=== PATIENT | female | born 1980 | race Caucasian/White ===

== ENCOUNTER → 2016-09-30 | Outpatient (CLI) | payer OTHER ==
[~2016-09-30] MED LIST: AZIT250T PO; DOXY100C2 PO; IBUP-1451 PO; PHEN-905 PO; PRED50TA PO; VNTHFA/IN INH
--- NOTE | 2016-09-30 12:00 | DIAGNOSTIC IMAGING REPORT ---
CHEST 2 VIEWS ROUTINE CLINICAL HISTORY: Abnormal chest x-ray. Follow-up examination. COMPARISON STUDY: 09/14/2016 FINDINGS: The cardiac and mediastinal contours are normal. There is no evidence of focal pulmonary consolidation. There is no evidence of failure. No pleural effusions are visualized.[ The previously queried right upper lung zone nodule is no longer visualized. This likely represented a summation. IMPRESSION: No active disease in the chest. Electronically signed by: Cameron Arnett M.D. 09/30/2016 11:58 AM Dictated Date/Time: 09/30/2016 11:57 AM
== END | disposition home or self-care (01) ==
LOC: C.RAD 11:21
PROVIDERS: ATTEND Family Medicine
DX: R93.8 Abnormal findings on diagnostic imaging of other specified body structures (principal)

== ENCOUNTER → 2016-10-24 | Outpatient (CLI) | payer OTHER | END | disposition home or self-care (01) | LOC: C.LAB 15:37 | DX: Z32.00 Encounter for pregnancy test, result unknown (principal) ==

== ENCOUNTER → 2016-10-24 | Outpatient (CLI) | payer OTHER ==
[2016-10-25 10:03] LABS: ESTIMATED AVERAGE GLUCOSE 111 mg/dl; HA1C FLAG Normal (Normal)
== END | disposition home or self-care (01) ==
LOC: C.LAB 15:32
PROVIDERS: ATTEND Nurse Practitioner Adult Health
DX: L83 Acanthosis nigricans (principal); R73.01 Impaired fasting glucose

== ENCOUNTER → 2016-10-26 | Outpatient (CLI) | payer OTHER | END | disposition home or self-care (01) | LOC: C.LAB 16:21 | DX: Z32.00 Encounter for pregnancy test, result unknown (principal) ==

== ENCOUNTER 2016-11-07 22:51 | Emergency (ER) | payer OTHER ==
[~2016-11-07] VITALS: Ht 160 cm; Wt 93.6 kg
[~2016-11-07 22:51] MED LIST changes: -AZIT250T PO; -PRED50TA PO; -VNTHFA/IN INH
[2016-11-07 22:53] VITALS: TEMP 36.6; Ht 160 cm; Wt 93.6 kg
--- NOTE | 2016-11-07 23:24 | EMERGENCY ROOM VISIT NOTE ---
History Report prepared by Adri: Holli Pearson Under the Supervision of: Dr. Madeleine Leslie D.O. First contact with patient: 23:01 Chief Complaint: PELVIC PAIN Stated Complaint: EPTOPIC History of Present Illness The patient is a 36 year old female who presents to the Emergency Room with complaints of persistent left pelvic pain that began prior to arrival. She currently rates her discomfort as an 8/10 in severity. The patient states that she had a positive test. She states that last Monday she was at her meter tester's office and had an ultrasound that revealed an ectopic on her left side. Per records, the patient's Quantitative HCG on October 26 was 81. She notes that last week her Quantitative HCG was in the 700s. Per records, the patient's Quantitative HCG was in the 500s today at her meter tester's office. The patient states that she was told that at that time it was too small to rupture. The patient states that he has been twice before, noting a previous right sided ectopic and a miscarriage during her second . She notes calf cramping today. The patient denies any vaginal bleeding. She denies any health problems. She states that she is unsure what her blood type is, and does not believe that she has ever had RhoGAM in the past. Source of History: patient Onset: prior to arrival Position: other (left pelvic) Symptom Intensity: 8/10 Timing: other (persistent) Note: Associated Symptoms: calf cramping. Review of Systems See HPI for pertinent positives & negatives. A total of 10 systems reviewed and were otherwise negative. Past Medical & Surgical Medical Problems: (1) Acute bronchitis (2) Asthma (3) Diarrhea (4) Otitis media (5) Tonsillitis (6) Uterine Leiomyoma Nos Surgical Problems: (1) Ectopic (2) Hx of myomectomy Family History Cancer Diabetes mellitus Social History Smoking Status: Current Every Day Smoker Alcohol Use: occasionally Marital Status: in relationship Housing Status: lives with significant other Occupation Status: employed Current/Historical Medications No Active Prescriptions or Reported Meds Allergies Coded Allergies: BEE STING (Verified Allergy, Severe, SWELLING AND DIFFICULTY BREATHING, ) Codeine (Verified Allergy, Severe, SHORTNESS OF BREATH, 11/07/16) Hydrocodone (Verified Allergy, Severe, CAN'T BREATHE, THROAT SWELLS, ) Morphine (Verified Adverse Reaction, Mild, adverse,shaking, 11/07/16) Physical Exam Vital Signs Date Time Temp Pulse Resp B/P Pulse Ox O2 Delivery O2 Flow Rate FiO2 11/08/16 03:10 77 20 124/78 96 11/08/16 01:27 79 20 139/78 98 Room Air 11/07/16 22:53 36.6 97 18 147/80 97 Room Air Physical Exam HEENT: Head - normocephalic and atraumatic Pupils are equal, round, and reactive to light. Extraocular eye muscles are intact, and sclera are anicteric. Nose - moist nasal mucosa without discharge. Mouth - moist buccal mucosa. Oropharynx is nonerythematous and there is no tonsillar exudate or edema noted. Neck: Supple; no JVD, nuchal rigidity, cervical lymphadenopathy, or auscultated bruits. Heart: Regular rate and rhythm. There is a normal S1 and S2 with no murmurs, clicks, or gallops appreciated. Lungs: Clear to auscultation bilaterally with no wheezes, rales, or rhonchi. Abdomen: Bilateral lower quadrant abdominal pain that is worse in the left than right. Soft, nondistended, with good bowel sounds. There are no palpable pulsatile masses or hepatosplenomegaly. There is no guarding, rigidity, or rebound noted. Extremities: No evidence of cyanosis, clubbing, or edema. There are easily palpable peripheral pulses. Skin: warm and dry with good turgor and no rashes. Medical Decision & Procedures ER Provider Diagnostic Interpretation: US results as stated below per my review and radiologist interpretation: US OB 1st Trimester: No evidence of intrauterine gestation. Heterogeneous uterus, may be due to multiple fibroids versus adenomyosis. There are 2 hypoechoic lesions in the right adnexa which appear to be separate from the right ovary. One of the lesions inferior to the rigth ovary measures approximately 1.2 centimeters. The lesion superior to the right ovary measures approximately 1.6 centimeters. These are incompletely characterized but one of these may represent an ectopic preganncy. No free fluid. Radiologist: Cecille Pruitt MD Study ready at 0146 and initial results transmitted at 0227. Laboratory Results Test 11/07/16 23:30 Human Chorionic Gonadotropin, Quant 405 mIU/mL Laboratory results per my review. Medications Administered Medications (Trade) Dose Ordered Sig/Cody Route Start Time Stop Time Status Last Admin Dose Admin Ketorolac Tromethamine (Toradol Inj) 30 mg NOW STAT IV 11/08/16 01:29 11/08/16 01:30 DC 11/08/16 01:42 30 MG Procedure The patient was treated with 30 mg of Toradol Inj IV. ED Course 2306: Past medical records reviewed. The patient was evaluated in room A11B. A complete history and physical exam was performed. An IV lock was initiated and labs are drawn as above. 0129: Ordered Toradol Inj 30 mg IV. 0240: I reviewed the operative note from 10/18/2002 and the patient had an ectopic removed out of right fallopian tube, but tube was not removed. 0258: I discussed the patients ultrasound report with [facility] radiologist. She states that she could not visualize the left tube, only left ovary. The patient was unable to tolerate further endovaginal exam. 0301: I reevaluated the patient and she is resting comfortably. I discussed the exam findings with her and I discussed the treatment plan. She verbalized complete understanding and agreement. She is ready to go home. Medical Decision The patient is a 36 year old female who presents to the ED with left pelvic pain. Differential diagnosis includes ectopic , ruptured left fallopian tube, colitis. Labs: Quantitative HCG is 405, blood type AB+. The patient was diagnosed with a left-sided ectopic 3 days ago. The quantitative hCG continues to drop. There is no obvious free fluid on pelvic ultrasound. I have asked the patient to follow-up with the chair mechanic later today with regards to the ultrasound report. I tried to obtain ultrasound reports from the [employer] system for the office ultrasounds that were reported by the patient but no reports were found. Consults Time Called: 025 Consulting Physician: [facility] Radiologist Returned Call: [phone] I discussed the patients ultrasound report with [facility] radiologist. She states that she could not visualize the left tube, only left ovary. The patient was unable to tolerate further endovaginal exam. Impression Primary Impression: Ectopic Scribe Attestation The scribe's documentation has been prepared under my direction and personally reviewed by me in its entirety. I confirm that the note above accurately reflects all work, treatment, procedures, and medical decision making performed by me. Departure Information Dispostion Home / Self-Care Prescriptions No Active Prescriptions or Reported Meds Referrals Nely Gomez C.R.N.P. (PCP) Forms HOME CARE DOCUMENTATION FORM, IMPORTANT VISIT INFORMATION, WORK / SCHOOL INSTRUCTIONS Patient Instructions My [facility] Additional Instructions You must follow up with Dr. Fragoso this AM for a recheck. Return to the ER for worsening pain
[2016-11-08] MEDS ORDERED: KETOROLAC TROMETHAMINE 30 MG/ML VIAL IV STA (01:29)
[2016-11-08 03:10] VITALS: BP 124/78; PULSE 77; O2SAT 96
--- NOTE | 2016-11-08 07:16 | DIAGNOSTIC IMAGING REPORT ---
ECTOPIC ULTRASOUND CLINICAL HISTORY: Left-sided ectopic . Evaluate for free fluid or rupture. COMPARISON STUDY: 05/26/2010 FINDINGS: The patient was imaged in both a transabdominal and endovaginal fashion. No intrauterine gestational sac is visualized. The endometrial stripe measured 13 mm. The uterus was heterogeneous in appearance and there is distortion of the endometrium, possibly secondary to a submucosal fibroid. Additional fibroids are suspected including a 3.6 cm posterior fibroid. The right ovary, appears to contain 2 exophytic lesions measuring 12 mm and 16 mm respectively. These are nonspecific. The left ovary appears morphologically abnormal, and abuts a 19 mm lesion with peripheral vascularity. Unfortunately, the patient was not able to tolerate optimal endovaginal imaging. IMPRESSION: 1. Technically limited study. Both ovaries appear morphologically abnormal. Adjacent ectopic pregnancies cannot be excluded given the clinical history 2. No evidence of intrauterine gestational sac 3. Multiple uterine fibroids with deformity of the endometrial stripe 4. No evidence of free pelvic fluid. Electronically signed by: Cameron Arnett M.D. 11/08/2016 7:15 AM Dictated Date/Time: 11/08/2016 7:07 AM
== END 2016-11-08 03:11 | disposition home or self-care (01) ==
LOC: C.EDB 22:52 → C.EDA 11-08 03:11
DX: O00.90 Unspecified ectopic pregnancy without intrauterine pregnancy (principal); J45.909 Unspecified asthma, uncomplicated; F17.210 Nicotine dependence, cigarettes, uncomplicated

== ENCOUNTER 2017-03-01 00:19 | Emergency (ER) | payer OTHER ==
[~2017-03-01] VITALS: Ht 157.5 cm; Wt 93.8 kg
[2017-03-01 00:22] VITALS: TEMP 36.8; Ht 157.5 cm; Wt 93.8 kg
[2017-03-01] MEDS ORDERED: ALBUT/IPRATROP 3MG/0.5MG NEB 3 ML VIAL INH ONE (00:45)
[2017-03-01] MEDS ORDERED: VNTHFA/IN INH (01:43)
[2017-03-01] MEDS ORDERED: PRED50TA PO (02:26)
[2017-03-01] MEDS ORDERED: AZIT250T PO (02:26)
[2017-03-01] MEDS ORDERED: AZITHROMYCIN 250 MG TAB PO ONE (02:30)
[2017-03-01 02:39] VITALS: BP 126/76; PULSE 93; O2SAT 93
--- NOTE | 2017-03-01 04:40 | EMERGENCY ROOM VISIT NOTE ---
History First contact with patient: 00:28 Chief Complaint: RESPIRATORY PROBLEMS Stated Complaint: TROUBLE BREATHING Nursing Triage Summary: Seen in urgent care [facility] last monday, diagnosed with bronchitis - given tesslon pearls and prednisone. Having fevers and vomitting at that time. Started to feel better then worse again past couple days. having trouble taking deep breath, tight chest, and shortness of breath. History of Present Illness The patient is a 37 year old female who presents to the Emergency Room with complaints of persistent bronchitis symptoms for the past 7-10 days. The patient was initially seen at an urgent care clinic last week and started on prednisone. The patient states that she developed fever symptoms a few days later, that have been waxing and waning. The patient has been using albuterol inhaler with only brief relief of her symptoms. She does not have distinct chest pain, but does have some difficulty with shortness of breath. She feels this is identical to previous episodes of bronchitis and rates her discomfort a 5/10. Review of Systems More than 10 systems were reviewed and otherwise negative with the exception of history of present illness. Past Medical/Surgical History Medical Problems: (1) Acute bronchitis (2) Asthma (3) Diarrhea (4) Otitis media (5) Tonsillitis (6) Uterine Leiomyoma Nos Surgical Problems: (1) Ectopic (2) Hx of myomectomy Family History Cancer Diabetes mellitus Social History Smoking Status: Current Every Day Smoker Alcohol Use: occasionally Marital Status: in relationship Housing Status: lives with significant other Occupation Status: employed Current/Historical Medications Scheduled Azithromycin (Zithromax), 250 MG PO DAILY Prednisone (Prednisone), 50 MG PO DAILY Scheduled PRN Albuterol Hfa (Ventolin Hfa), 2 PUFFS INH Q6H PRN for SOB/Wheezing Allergies Coded Allergies: BEE STING (Verified Allergy, Severe, SWELLING AND DIFFICULTY BREATHING, ) Codeine (Verified Allergy, Severe, SHORTNESS OF BREATH, 03/01/17) Hydrocodone (Verified Allergy, Severe, CAN'T BREATHE, THROAT SWELLS, ) Morphine (Verified Adverse Reaction, Mild, adverse,shaking, 03/01/17) Physical Exam Vital Signs Date Time Temp Pulse Resp B/P (MAP) Pulse Ox O2 Delivery O2 Flow Rate FiO2 03/01/17 02:39 93 16 126/76 93 03/01/17 01:38 94 18 120/67 94 Room Air 03/01/17 00:47 94 Room Air 03/01/17 00:22 36.8 103 18 121/74 94 Room Air Pain Rating (0-10): 0 Physical Exam VITALS: Vitals are noted on the nurse's note and reviewed by myself. Vital signs stable. GENERAL: Well-developed, well-nourished, white female, who is in no acute distress and resting comfortably. Patient is cooperative with the examination. HEAD: Normocephalic atraumatic. HEART: Regular rate and rhythm without murmurs gallops or rubs. LUNGS: Diffuse wheezing and rhonchi throughout. No crackles or rales. MUSCULOSKELETAL: No muscle atrophy, erythema, or edema noted. Full range of motion without joint tenderness in all extremities. No lower extremity edema or posterior calf tenderness. Medical Decision & Procedures Medications Administered Medications (Trade) Dose Ordered Sig/Cody Route Start Time Stop Time Status Last Admin Dose Admin Prednisone (PredniSONE TAB) 60 mg NOW STAT PO 03/01/17 00:39 03/01/17 00:40 DC 03/01/17 00:54 60 MG Albuterol/ Ipratropium (Duoneb) 12 ml NOW ONCE INH 03/01/17 00:45 03/01/17 00:46 DC 03/01/17 00:53 12 ML Azithromycin (Zithromax Tab) 500 mg NOW ONCE PO 03/01/17 02:30 03/01/17 02:31 DC 03/01/17 02:31 500 MG ED Course Physical exam and history were performed. Nursing notes and EMR were reviewed. Patient appears to have bronchitis symptoms for the past 7-10 days. The patient does not appear toxic on examination. She was treated here in the department with a one-hour DuoNeb and oral prednisone. A chest x-ray was performed. Chest x-ray was reviewed by myself and my attending without acute process. On reevaluation the patient felt much better, and fellow for discharge home. Due to the length of her symptoms and we'll give her a course of Zithromax. She will also be treated with prednisone. The patient was pleased with this and invited back to the ER with any new, worsening, or concerning symptoms. The chart was completed utilizing [employer] Voice Recognition Software. Grammatical errors, random word insertions, pronoun errors, and incomplete sentences are an occasional consequence of this system due to software limitations, ambient noise, and hardware issues. Any formal questions or concerns about the content, text, or information contained within the body of this dictation should be directly addressed to the provider for clarification. Medical Decision Differential diagnosis: Etiologies such as infections, reactive airway disease, pneumonia, pneumothorax , COPD, CHF, cardiac ischemia, pulmonary embolism, musculoskeletal, gastrointestinal, as well as others were entertained. Impression Primary Impression: Acute bronchitis Departure Information Dispostion Home / Self-Care Condition GOOD Prescriptions Prednisone (Prednisone) 50 Mg Tab 50 MG PO DAILY for 4 Days, #4 TAB Prov: Ricardo Frank PA-C 03/01/17 Azithromycin (Zithromax) 250 Mg Tab 250 MG PO DAILY for 4 Days, #4 TAB Prov: Ricardo Frank PA-C 03/01/17 Forms HOME CARE DOCUMENTATION FORM, IMPORTANT VISIT INFORMATION Patient Instructions My [facility] Additional Instructions You were seen and evaluated today on an emergency basis only. This is not a substitute for, or an effort to provide, complete comprehensive medical care. It is not possible to recognize and treat all injuries or illnesses in a single emergency department visit. For this reason it is recommended that you followup with your primary care physician in the next 2-3 days for recheck. Take Zithromax 250 mg daily for the next 4 days. Take prednisone 50 mg daily for the next 4 days. You are welcome to return to the emergency department anytime with new, worsening, or concerning symptoms.
--- NOTE | 2017-03-01 07:25 | DIAGNOSTIC IMAGING REPORT ---
CHEST 2 VIEWS ROUTINE CLINICAL HISTORY: Cough/Wheezing COMPARISON STUDY: Chest radiograph September 30, 2016. FINDINGS: There is no pneumothorax or pleural effusion. There is no consolidation to suggest pneumonia. Cardiac size is normal. Mediastinal contours are normal. There is no evidence of pulmonary edema. IMPRESSION: No acute cardiopulmonary findings. Electronically signed by: Ambrose Hopson M.D. 03/01/2017 7:24 AM Dictated Date/Time: 03/01/2017 7:22 AM
== END 2017-03-01 02:40 | disposition home or self-care (01) ==
LOC: C.EDB 00:20
DX: J20.9 Acute bronchitis, unspecified (principal); J45.909 Unspecified asthma, uncomplicated; F17.200 Nicotine dependence, unspecified, uncomplicated; Z87.59 Personal history of other complications of pregnancy, childbirth and the puerperium; Z98.890 Other specified postprocedural states; Z83.3 Family history of diabetes mellitus

== ENCOUNTER → 2017-06-09 | Outpatient (CLI) | payer OTHER ==
[~2017-06-09] MED LIST changes: -DOXY100C2 PO; -IBUP-1451 PO; -PHEN-905 PO; +VNTHFA/IN INH
[2017-06-09 12:58] LABS: BASO % 0.9 %; BASO ABS # 0.08 K/uL (0-0.2); EOS % 1.9 %; HEMATOCRIT 39.6 % (37-47); IG% 0.2 %; LYMPH % 22.6 %; LYMPH ABS # 1.98 K/uL (1.2-3.4); MEAN CELL VOLUME 72.8 fL (80-100); MEAN CORPUSCULAR HEMOGLOBIN 22.4 pg (25-34); MEAN CORPUSCULAR HGB CONC 30.8 g/dl (32-36); MEAN PLATELET VOLUME 9.4 fL (7.4-10.4); MONO % 5.5 %; NEUT % 68.9 %; PLATELET COUNT 449 K/uL (130-400); RED BLOOD COUNT 5.44 M/uL (4.2-5.4); WHITE BLOOD COUNT 8.78 K/uL (4.8-10.8)
[2017-06-09 13:22] LABS: COMPLETE YES; ECHINOCYTES 1+; HYPERSEGMENTED POLYS 1+; HYPOCHROMIA PRESENT; OVALOCYTES 1+
[2017-06-09 13:33] LABS: ALT/SGPT 17 U/L (12-78); BLOOD UREA NITROGEN 10 mg/dl (7-18); BUN/CREATININE RATIO 13.9 (10-20); CALCIUM 8.6 mg/dl (8.5-10.1); CARBON DIOXIDE 23 mmol/L (21-32); CHLORIDE 109 mmol/L (98-107); CHOLESTEROL 214 mg/dl (0-200); CREATININE 0.74 mg/dl (0.60-1.20); GLUCOSE 93 mg/dl (70-99); POTASSIUM 3.9 mmol/L (3.5-5.1); SODIUM 140 mmol/L (136-145)
[2017-06-09 13:43] LABS: ALB/GLOB RATIO 0.8 (0.9-2); ALKALINE PHOSPHATASE 89 U/L (45-117); AST/SGOT 10 U/L (15-37); CHOLESTEROL/HDL RATIO 5.2; HDL CHOLESTEROL 41 mg/dl; LDL CHOLESTEROL CALCULATED 140 mg/dl; TRIGLYCERIDES 165 mg/dl (0-150); VERY LOW DENSITY LIPOPROT CALC 33 mg/dl
== END | disposition home or self-care (01) ==
LOC: C.LAB 11:18
PROVIDERS: ATTEND Nurse Practitioner Adult Health
DX: E78.5 Hyperlipidemia, unspecified (principal); F41.9 Anxiety disorder, unspecified

== ENCOUNTER → 2017-06-21 | Outpatient (CLI) | payer OTHER | LOC: C.PATHSPEC 16:50 | PROVIDERS: ATTEND Dermatology | DX: L91.8 Other hypertrophic disorders of the skin (principal) ==

== ENCOUNTER 2017-09-26 12:56 | Emergency (ER) | payer OTHER ==
[~2017-09-26] VITALS: Ht 160 cm; Wt 94.3 kg
[2017-09-26 13:13] VITALS: BP 124/71; PULSE 73; TEMP 37; O2SAT 97; Ht 160 cm; Wt 94.3 kg
--- NOTE | 2017-09-26 13:50 | DIAGNOSTIC IMAGING REPORT ---
CERVICAL SPINE 2 OR 3 VIEWS HISTORY: Pain. Neuropathy. RUE radiculopathy COMPARISON: None. FINDINGS: The cervical spine is visualized from C1 through the superior endplate of T1. There is no fracture. Reversal of the cervical curvature consistent with muscular spasm. Disc spaces are preserved. Prevertebral soft tissues and the atlantodens interval are intact. IMPRESSION: No fracture or subluxation within the cervical spine. Muscle spasm. The above report was generated using voice recognition software. It may contain grammatical, syntax or spelling errors. Electronically signed by: James Ramon M.D. 09/26/2017 1:48 PM Dictated Date/Time: 09/26/2017 1:47 PM
--- NOTE | 2017-09-26 14:01 | EMERGENCY ROOM VISIT NOTE ---
ED Visit Note First contact with patient: 13:16 CHIEF COMPLAINT: Right shoulder pain radiating down right arm HISTORY OF PRESENT ILLNESS: This 37 year old female patient presents to the emergency department, ambulatory complaining of pain in the neck on the right side, radiating into the shoulder and down the right arm. The patient rates the pain as tingly and 8/10 at its worst. The patietn states pain has been intermittent for several months, but recently worsening and for the past 2-3 days, has been more consistent. She describes the pain in her biceps as a "tearing sensation" and state she feels that the pain in her shoulder is a pressure. She states pain is worse with direct pressure of the elbow, which causes a tingling sensation down the right arm. The patient has taken 800mg ibuprofen at night for the pain without relief. 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 She does report talking with her PCP regarding the pain, but thought at that time it was related to her sleeping position. After changing positions at night, the symptoms have not improved. The patient denies numbness, but does report tingling. The patient denies chest pain or shortness of breath. There has been no injury. The patient denies headache, blurred vision, abdominal pain, nausea, or vomiting. The patient denies change in personality. REVIEW OF SYSTEMS: A 6 system review of systems was completed with positives and pertinent negatives listed in the HPI. ALLERGIES: Codeine, hydrocodone, morphine, fentanyl MEDICATIONS: None PMH: None SOCIAL HISTORY: The patient lives locally with family. She denies drug, alcohol , tobacco use. PHYSICAL EXAM: VITALS: Vitals are noted on the nurse's note and reviewed by myself. Vital signs stable. GENERAL: This is a 37 year old white female, in no acute distress , nondiaphoretic, well-developed well-nourished. SKIN: Capillary reflex less than 2 seconds. HEENT: Normocephalic. PERRLA. EOMI. Nares patent. Mucous membranes moist. Neck is supple without nuchal rigidity. Cervical spine is not tender to palpation. The patient does not have tenderness of the paraspinal muscles bilaterally. There is no lymphadenopathy. MUSCULOSKELETAL: The patient has full range of motion of the bilateral arms, however range of motion of the right shoulder is painful with abduction. The patient has increased discomfort with pain radiating down the arm with lateral bending and rotation in both directions of the neck. Strength 5/5 of the bilateral upper extremities. No weakness. NEURO: Patient was alert and oriented to person place and time. Normal sensation to light and sharp touch. No focal neurologic deficits. RADIOLOGY: CERVICAL SPINE 2 OR 3 VIEWS HISTORY: Pain. Neuropathy. RUE radiculopathy COMPARISON: None. FINDINGS: The cervical spine is visualized from C1 through the superior endplate of T1. There is no fracture. Reversal of the cervical curvature consistent with muscular spasm. Disc spaces are preserved. Prevertebral soft tissues and the atlantodens interval are intact. IMPRESSION: No fracture or subluxation within the cervical spine. Muscle spasm. The above report was generated using voice recognition software. It may contain grammatical, syntax or spelling errors. Electronically signed by: James Ramon M.D. 09/26/2017 1:48 PM Dictated Date/Time: 09/26/2017 1:47 PM EMERGENCY DEPARTMENT COURSE: I examined the patient. She presents today c/o chronic right shoulder/arm pain. She states symptoms seemed to have flared up and worsened spontaneously 2-3 days ago. The patient does have muscle spasms on examination, and movement at the neck worsens her symptoms. She has been taking 800mg ibuprofen QD for her symptoms without relief. I suspect a cervical radiculopathy vs. nerve impingement due to muscle spasms. The patient was agreeable to treatment with steroids and muscle relaxers with outpatient follow- up with her PCP. Discharge instructions were reviewed, prescriptions were sent, and the patient was discharged home in good condition. I attest that I have personally reviewed the patient's current medication list. Patient was found to have normal blood pressure on screening and does not require follow-up. DIFFERENTIAL DIAGNOSIS: Cervical radiculopathy, fracture, disc protrusion, disc herniation, nerve impingement, muscle spasms, sprain, strain, malignancy, and others DIAGNOSIS: Cervical radiculopathy, nerve impingement, muscle spasms Problem List Medical Problems: (1) Acute bronchitis Status: Resolved (2) Asthma Status: Chronic (3) Diarrhea Status: Resolved (4) Otitis media Status: Resolved (5) Tonsillitis Status: Resolved (6) Uterine Leiomyoma Nos Status: Chronic Surgical Problems: (1) Ectopic Status: Resolved (2) Hx of myomectomy Status: Resolved Current/Historical Medications Scheduled Cyclobenzaprine Hcl (Flexeril), 5-10 MG PO TID Methylprednisolone (Medrol Dosepak), 0 PO DAILY Allergies Coded Allergies: BEE STING (Verified Allergy, Severe, SWELLING AND DIFFICULTY BREATHING, ) Codeine (Verified Allergy, Severe, SHORTNESS OF BREATH, 03/01/17) Hydrocodone (Verified Allergy, Severe, CAN'T BREATHE, THROAT SWELLS, ) Morphine (Verified Adverse Reaction, Mild, adverse,shaking, 03/01/17) Vital Signs Date Time Temp Pulse Resp B/P (MAP) Pulse Ox O2 Delivery O2 Flow Rate FiO2 09/26/17 13:13 37.0 73 16 124/71 97 Room Air Departure Information Impression Primary Impression: Cervical radiculopathy Additional Impression: Muscle spasm of right shoulder Dispostion Home / Self-Care Condition GOOD Prescriptions Cyclobenzaprine Hcl (FLEXERIL) 5 Mg Tab 5-10 MG PO TID, #15 TAB PRN Prov: Kristal Clifford PA-C 09/26/17 Methylprednisolone (MEDROL DOSEPAK) 4 Mg Paul 0 PO DAILY, #1 PKT Prov: Kristal Clifford PA-C 09/26/17 Referrals Nely Gomez C.R.N.P. (PCP) Patient Instructions ED Cervical Radiculopathy, [facility] Additional Instructions You have been treated in the Emergency Department for right shoulder pain, cervical radiculopathy. You have been prescribed Flexeril (cyclobenzaprine) 1-2 tabs orally, three times per day. Do NOT exceed 30 mg (6 tabs) per day. Take your first dose at bedtime as it can make you drowsy. Always take all medications as prescribed. You have been prescribed a Medrol Dosepak. This is a steroid which will help decrease your inflammation, redness, and itch. Take the medicine as prescribed. Take the ENTIRE 6 day course of the steroids. Do not take any NSAIDs including ibuprofen, Motrin, Aleve, naproxen, Advil, Naprosyn while taking steroids. For pain control, you can use the following [id number] medicines (if >12 yo): Ibuprofen(Motrin, Advil) may be used for fever or pain. Use 600mg every six hours as needed. Take with food. Avoid using more than 2400mg in a 24 hour period. Do not use 2400mg per day for more than three consecutive days without physician direction. Prolonged inappropriate use can lead to stomach upset or ulcers. (AND/OR) Acetaminophen(Tylenol) may be used for fever or pain. Use 1000mg every six hours as needed. Avoid using more than 3000mg in a 24 hour period. If this is an acute injury, ice can be applied to the area of pain for the first 3 days to help decrease pain and inflammation. After the first 3 days, a heating pad can be used over the area for continued soothing relief. You should schedule a follow-up appointment in 2-3 days with your Primary Care Provider for further evaluation and treatment of your neck/shoulder pain. Return to the Emergency Department if your current symptoms worsen despite treatment course outlined above, or if you develop any of the following symptoms : intractable pain despite aforementioned treatment course, loss of control of your bowel or bladder, numbness or tingling in your groin, or development of a fever. Problem Qualifiers
[2017-09-26] MEDS ORDERED: METH4PAK PO (14:11)
[2017-09-26] MEDS ORDERED: CYCL5TAB PO (14:11)
== END 2017-09-26 14:25 | disposition home or self-care (01) ==
LOC: C.EDB 12:57 → C.EDD 14:25
DX: M54.12 Radiculopathy, cervical region (principal); M62.838 Other muscle spasm; G89.29 Other chronic pain; J45.909 Unspecified asthma, uncomplicated

== ENCOUNTER 2017-10-10 00:54 | Emergency (ER) | payer OTHER ==
[~2017-10-10] VITALS: Ht 160 cm; Wt 92.3 kg
[2017-10-10 01:02] VITALS: Ht 160 cm; Wt 92.3 kg
[2017-10-10] MEDS ORDERED: DIAZEPAM 5MG TAB PO STA (01:59)
[2017-10-10] MEDS ORDERED: PRED20TA PO (02:01)
[2017-10-10] MEDS ORDERED: DIAZ-165 PO (02:01)
--- NOTE | 2017-10-10 02:02 | EMERGENCY ROOM VISIT NOTE ---
History Report prepared by Adri: Nik Urrtuia Under the Supervision of: Dr. Jonah Mcfarlane M.D. First contact with patient: 01:16 Chief Complaint: NEURO SYMPTOMS Stated Complaint: RIGHT ARM NUMBNESS,GOING INTO NECK AND HEAD History of Present Illness The patient is a 37 year old female who presents to the Emergency Room with complaints of constant right arm numbness and weakness beginning today. Her numbness begins in the center of her upper right arm, and radiates down to her hand as well as up towards her neck. The patient has been told that she has muscle knots in her right shoulder. She was seen in the ED two weeks ago for similar symptoms, but states that her current symptoms are worse. She was treated with muscle relaxers at this time and discharged on steroids. The patient notes that she has been losing weight recently, but not intentionally. She notes that she has been very thirsty lately. She states that she has been urinating frequently as well, but states that this is normal for her. The patient denies bowel or bladder incontinence, or leg numbness or weakness. Source of History: patient Onset: Today Position: arm (right) Quality: numbness, other (weakness) Timing: constant Associated Symptoms: No weakness (leg), No numbness (leg) Note: The patient denies loss of bowel or bladder continence. Review of Systems See HPI for pertinent positives & negatives. A total of 10 systems reviewed and were otherwise negative. Past Medical & Surgical Medical Problems: (1) Acute bronchitis (2) Asthma (3) Diarrhea (4) Otitis media (5) Tonsillitis (6) Uterine Leiomyoma Nos Surgical Problems: (1) Ectopic (2) Hx of myomectomy Family History Cancer Diabetes mellitus Social History Smoking Status: Current Every Day Smoker Alcohol Use: occasionally Marital Status: in relationship Housing Status: lives with significant other Occupation Status: employed Current/Historical Medications Scheduled Prednisone (Prednisone), 0 PO DAILY Scheduled PRN Diazepam (Valium), 5 MG PO Q6H PRN for Pain Allergies Coded Allergies: BEE STING (Verified Allergy, Severe, SWELLING AND DIFFICULTY BREATHING, ) Codeine (Verified Allergy, Severe, SHORTNESS OF BREATH, 10/10/17) Hydrocodone (Verified Allergy, Severe, CAN'T BREATHE, THROAT SWELLS, ) Morphine (Verified Adverse Reaction, Mild, adverse,shaking, 10/10/17) Physical Exam Vital Signs Date Time Temp Pulse Resp B/P (MAP) Pulse Ox O2 Delivery O2 Flow Rate FiO2 10/10/17 02:12 36.9 89 18 115/82 98 10/10/17 01:02 36.9 96 18 125/79 97 Room Air Physical Exam GENERAL: Patient is well appearing and in mild distress. HEENT: No acute trauma, normocephalic atraumatic, mucous membranes moist, no nasal congestion, no scleral icterus. NECK: No stridor, no adenopathy, no meningismus, trachea is midline. LUNGS: No dyspnea. Clear to auscultation and equal bilaterally. No wheeze, no rhonchi. HEART: Regular rate and rhythm. No murmurs, rubs, gallops appreciated. EXTREMITIES: Normal motion all extremities, no cyanosis, no edema. NEUROLOGIC: Alert and oriented, no acute motor or sensory deficits, no focal weakness, cranial nerves grossly intact. SKIN: No rash, no jaundice, no diaphoresis. Medical Decision & Procedures Laboratory Results Test 10/10/17 01:45 Bedside Glucose 102 mg/dl (70-90) Medications Administered Medications (Trade) Dose Ordered Sig/Cody Route Start Time Stop Time Status Last Admin Dose Admin Prednisone (PredniSONE TAB) 60 mg NOW STAT PO 10/10/17 01:59 10/10/17 02:00 DC 10/10/17 02:05 60 MG Diazepam (Valium Tab) 5 mg NOW STAT PO 10/10/17 01:59 10/10/17 02:00 DC 10/10/17 02:05 5 MG ED Course 0118: The patient was evaluated in room B6. A complete history and physical exam was performed. 0159: Ordered Valium Tab 5 mg PO, Prednisone Tab 60 mg PO. 0200: Reevaluated the patient. Discussed results and discharge instructions: she verbalized understanding and agreement. The patient is ready for discharge. Medical Decision Differential: Cervical radiculopathy, spinal stenosis, dissection, and muscle spasm. 37 yr old female with right arm symptoms consistent with radiculopathy without weakness and with posterior head pain I suspect muscle spasm/occipital nerve irritation. No neuro deficits. Previously responded to medrol thus will increase prednisone taper and add on Valium for further muscle relaxation. Stressed PCP follow up to discuss MRI vs PT and possible spine surgeon eval. Reviewed symptoms requiring RTED. No evidence vascular issue/dissection. [place] Drug Monitoring [place] Search Results: patient reviewed within database, no issues identified, see additional documentation Drug Monitoring Findings: Previous prescriptions for benzodiazepines several months ago. None recent. Medication Reconcilliation Current Medication List: was personally reviewed by me Blood Pressure Screening Patient's blood pressure: Normal blood pressure Blood pressure disposition: Did not require urgent referral Impression Primary Impression: Right cervical radiculopathy Scribe Attestation The scribe's documentation has been prepared under my direction and personally reviewed by me in its entirety. I confirm that the note above accurately reflects all work, treatment, procedures, and medical decision making performed by me. Departure Information Dispostion Home / Self-Care Prescriptions Diazepam (Valium) 5 Mg Tab 5 MG PO Q6H Y for Pain, #10 TAB Prov: Jonah Mcfarlane M.D. 10/10/17 Prednisone (Prednisone) 20 Mg Tab 0 PO DAILY, #14 TAB 3 TABS DAILY FOR 2 DAYS, THEN 2 TABS DAILY FOR 2 DAYS, THEN 1 TAB DAILY FOR 2 DAYS, THEN 1/2 TAB DAILY FOR 2 DAYS. Prov: Jonah Mcfarlane M.D. 10/10/17 Referrals Nely Gomez C.R.NEmre (PCP) Patient Instructions ED Cervical Radiculopathy, [facility] Additional Instructions It is very important you follow up with your primary care provider for further evaluation and possible MRI imaging.
[2017-10-10 02:12] VITALS: BP 115/82; PULSE 89; TEMP 36.9; O2SAT 98
== END 2017-10-10 02:13 | disposition home or self-care (01) ==
LOC: C.EDB 00:55
DX: M54.12 Radiculopathy, cervical region (principal); F17.200 Nicotine dependence, unspecified, uncomplicated; Z80.9 Family history of malignant neoplasm, unspecified; Z83.3 Family history of diabetes mellitus

== ENCOUNTER 2018-01-27 16:18 | Emergency (ER) | payer OTHER ==
[~2018-01-27] VITALS: Ht 160 cm; Wt 88.2 kg
[~2018-01-27 16:18] MED LIST changes: +DIAZ-165 PO; +PRED20TA PO; -VNTHFA/IN INH
[2018-01-27 16:21] VITALS: TEMP 36.5; Ht 160 cm; Wt 88.2 kg
[2018-01-27] MEDS ORDERED: SODIUM CHLORIDE 0.9% 500ML 500 ML IV STA (16:31)
[2018-01-27] MEDS ORDERED: KETOROLAC TROMETHAMINE 30 MG/ML VIAL IV STA (16:31)
[2018-01-27] MEDS ORDERED: ONDANSETRON INJ 2 MG/ML 2 ML VIAL IV STA (16:31)
--- NOTE | 2018-01-27 16:48 | EMERGENCY ROOM VISIT NOTE ---
History Report prepared by Adri: Harpal Rankin Under the Supervision of: Dr. Reymundo Saucedo M.D. First contact with patient: 16:24 Chief Complaint: VAGINAL BLEEDING Stated Complaint: HEAVY PERIOD,LG CLOTS,DIZZY History of Present Illness The patient is a 38 year old female who presents to the Emergency Room with complaints of constant vaginal bleeding beginning two days ago. The patient states that her period was four days late, which she notes is very unusual for her. She reports that she started spotting two days ago. She reports that she had some light bleeding and discharge yesterday. The patient states that she passed a clot this morning that looked like scabs. She also complains of nausea , dizziness, constipation, abdominal cramps, back pain, and chills. She notes that her last bowel movement was this morning, but reports that it was difficult. She rates her abdominal cramping as a 7/10. She denies any vomiting, fever, cough, urinary symptoms, and congestion. The patient states that she has been three times in the past. She notes that one resulted in a miscarriage and that the other two were ectopic. She reports that there is a chance that she might be . The patient states that during her last , she was very dizzy but was not as nauseous as she is today. She notes that she took 800mg ibuprofen with no relief of her symptoms. She reports that she has a history of a myomectomy. Source of History: patient Onset: two days ago Position: other (vagina) Quality: other (bleeding) Timing: constant Associated Symptoms: + chills, + nausea, + back pain, No fevers, No cough, No vomiting, No urinary symptoms Note: The patient also complains of dizziness, constipation, and abdominal cramps. She denies any congestion. Review of Systems See HPI for pertinent positives & negatives. A total of 10 systems reviewed and were otherwise negative. Past Medical & Surgical Medical Problems: (1) Acute bronchitis (2) Asthma (3) Diarrhea (4) Ectopic (5) Miscarriage (6) Otitis media (7) (8) Tonsillitis (9) Uterine Leiomyoma Nos Surgical Problems: (1) Ectopic (2) Hx of myomectomy Family History Cancer Diabetes mellitus Hypertension Social History Smoking Status: Current Every Day Smoker Alcohol Use: occasionally Marital Status: in relationship Housing Status: lives with significant other Occupation Status: unemployed Current/Historical Medications No Active Prescriptions or Reported Meds Allergies Coded Allergies: BEE STING (Verified Allergy, Severe, SWELLING AND DIFFICULTY BREATHING, ) Codeine (Verified Allergy, Severe, SHORTNESS OF BREATH, 10/10/17) Hydrocodone (Verified Allergy, Severe, CAN'T BREATHE, THROAT SWELLS, ) Fentanyl (Unverified Adverse Reaction, Severe, stopped breathing, 01/27/18) Morphine (Verified Adverse Reaction, Mild, adverse,shaking, 10/10/17) Physical Exam Vital Signs Date Time Temp Pulse Resp B/P (MAP) Pulse Ox O2 Delivery O2 Flow Rate FiO2 01/27/18 16:21 36.5 81 18 147/85 98 Room Air Physical Exam GENERAL: Patient is in no acute distress. HEENT: No acute trauma, normocephalic atraumatic, mucous membranes moist, no nasal congestion, no scleral icterus. NECK: No stridor, no adenopathy, no meningismus, trachea is midline. LUNGS: Clear to auscultation bilaterally, no wheeze, no rhonchi, breath sounds equal. HEART: Without murmurs gallops or rubs, regular rate and rhythm. ABDOMEN: Soft, bowel sounds positive, no hernias, no peritonitis, mildly tender in the mid low pelvis. EXTREMITIES: No cyanosis or edema, full range of motion of all the joints without pain or difficulty, no signs for acute trauma. NEUROLOGIC: Oriented x 3, no acute motor or sensory deficits, no focal weakness. SKIN: No rash, no jaundice, no diaphoresis. Medical Decision & Procedures ER Provider Diagnostic Interpretation: Pelvic ultrasound: IMPRESSION: 1. Intramural and pedunculated subserosal uterine leiomyomas as above. 2. No endometrial thickening. 3. 1.6 cm hypoechoic structure adjacent to the right ovary suggests exophytic follicle or para ovarian cyst. 4. No evidence of ovarian torsion. 5. Trace free pelvic fluid, likely physiologic. The above report was generated using voice recognition software. It may contain grammatical, syntax or spelling errors. Electronically signed by: Chaka Giron M.D. 01/27/2018 6:14 PM Laboratory Results 01/27/18 17:00 Red Blood Count 5.13, Mean Corpuscular Volume 72.9, Mean Corpuscular Hemoglobin 22.8, Mean Corpuscular Hemoglobin Concent 31.3, Mean Platelet Volume 8.9, Neutrophils (%) (Auto) 66.2, Lymphocytes (%) (Auto) 27.4, Monocytes (%) (Auto) 4.8, Eosinophils (%) (Auto) 1.1, Basophils (%) (Auto) 0.3, Neutrophils # (Auto) 6.13, Lymphocytes # (Auto) 2.53, Monocytes # (Auto) 0.44, Eosinophils # (Auto) 0.10, Basophils # (Auto) 0.03 01/27/18 17:00 Test 01/27/18 16:50 01/27/18 17:00 Urine Color YELLOW Urine Appearance CLEAR (CLEAR) Urine pH 5.0 (4.5-7.5) Urine Specific [place] 1.014 (1.000-1.030) Urine Protein NEG (NEG) Urine Glucose (UA) NEG (NEG) Urine Ketones NEG (NEG) Urine Occult Blood NEG (NEG) Urine Nitrite NEG (NEG) Urine Bilirubin NEG (NEG) Urine Urobilinogen NEG (NEG) Urine Leukocyte Esterase NEG (NEG) White Blood Count 9.25 K/uL (4.8-10.8) Red Blood Count 5.13 M/uL (4.2-5.4) Hemoglobin 11.7 g/dL (12.0-16.0) Hematocrit 37.4 % (37-47) Mean Corpuscular Volume 72.9 fL (80-100) Mean Corpuscular Hemoglobin 22.8 pg (25-34) Mean Corpuscular Hemoglobin Concent 31.3 g/dl (32-36) Platelet Count 406 K/uL (130-400) Mean Platelet Volume 8.9 fL (7.4-10.4) Neutrophils (%) (Auto) 66.2 % Lymphocytes (%) (Auto) 27.4 % Monocytes (%) (Auto) 4.8 % Eosinophils (%) (Auto) 1.1 % Basophils (%) (Auto) 0.3 % Neutrophils # (Auto) 6.13 K/uL (1.4-6.5) Lymphocytes # (Auto) 2.53 K/uL (1.2-3.4) Monocytes # (Auto) 0.44 K/uL (0.11-0.59) Eosinophils # (Auto) 0.10 K/uL (0-0.5) Basophils # (Auto) 0.03 K/uL (0-0.2) RDW Standard Deviation 46.3 fL (36.4-46.3) RDW Coefficient of Variation 17.2 % (11.5-14.5) Immature Granulocyte % (Auto) 0.2 % Immature Granulocyte # (Auto) 0.02 K/uL (0.00-0.02) Anion Gap 5.0 mmol/L (3-11) Est Creatinine Clear Calc Drug Dose 85.6 ml/min Estimated GFR () 90.3 Estimated GFR (Non- 77.9 BUN/Creatinine Ratio 9.6 (10-20) Calcium Level 8.5 mg/dl (8.5-10.1) Human Chorionic Gonadotropin, Qual NEG (NEG) Laboratory results reviewed by me. Medications Administered Medications (Trade) Dose Ordered Sig/Cody Route Start Time Stop Time Status Last Admin Dose Admin Ondansetron HCl (Zofran Inj) 4 mg NOW STAT IV 01/27/18 16:31 01/27/18 16:35 DC 01/27/18 17:05 4 MG Ketorolac Tromethamine (Toradol Inj) 30 mg NOW STAT IV 01/27/18 16:31 01/27/18 16:35 DC 01/27/18 17:04 30 MG Sodium Chloride 500 ml @ 999 mls/hr Q31M STAT IV 01/27/18 16:31 01/27/18 17:01 DC 01/27/18 17:04 999 MLS/HR ED Course 1625: The patient was evaluated in room B10. A complete history and physical exam was performed. 1631: Sodium Chloride 500 ml @ 999 mls/hr IV, Toradol Inj 30mg IV, Zofran Inj 4mg IV Reevaluated the patient. Discussed results and discharge instructions: She verbalized understanding and agreement. The patient is ready for discharge. Medical Decision Differential diagnoses include: heavy menstrual cycle, miscarriage, , fibroid, ovarian cyst, ectopic , UTI, anemia, and electrolyte imbalance. There is no leukocytosis or worrisome anemia. No significant electrolyte abnormality or kidney failure. testing is negative. Urinalysis does not show infection. On exam, the patient had some mild lower pelvic discomfort with palpation, no peritonitis. She was not toxic or febrile. Pelvic ultrasound shows a few fibroids, a possible small cyst on the right ovary. There was no evidence for ovarian torsion. Patient received IV Zofran, IV Toradol, IV saline, she seems fairly comfortable. The patient appears to have a heavy, somewhat irregular menstrual cycle. She was most concerned about or miscarriage, this is not the case. Patient will treat this like a heavy menstrual cycle, OB follow-up was suggested. I did not feel the need for a pelvic exam given the lack of a positive test, given the lack of heavy vaginal bleeding while in the ED. Medication Reconcilliation Current Medication List: was personally reviewed by me Blood Pressure Screening Patient's blood pressure: Elevated blood pressure Blood pressure disposition: Elevated BP felt to be situational Impression Primary Impression: Vaginal bleeding Additional Impression: Pelvic cramping Scribe Attestation The scribe's documentation has been prepared under my direction and personally reviewed by me in its entirety. I confirm that the note above accurately reflects all work, treatment, procedures, and medical decision making performed by me. Departure Information Dispostion Home / Self-Care Prescriptions No Active Prescriptions or Reported Meds Referrals Nely Gomez C.R.N.P. 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 Problem Qualifiers
[2018-01-27 17:15] LABS: BASO % 0.3 %; BASO ABS # 0.03 K/uL (0-0.2); EOS % 1.1 %; HEMATOCRIT 37.4 % (37-47); HEMOGLOBIN 11.7 g/dL (12.0-16.0); IG# 0.02 K/uL (0.00-0.02); LYMPH % 27.4 %; LYMPH ABS # 2.53 K/uL (1.2-3.4); MEAN CELL VOLUME 72.9 fL (80-100); MEAN CORPUSCULAR HEMOGLOBIN 22.8 pg (25-34); MEAN CORPUSCULAR HGB CONC 31.3 g/dl (32-36); MEAN PLATELET VOLUME 8.9 fL (7.4-10.4); MONO % 4.8 %; MONO ABS # 0.44 K/uL (0.11-0.59); NEUT % 66.2 %; NEUT ABS # 6.13 K/uL (1.4-6.5); PLATELET COUNT 406 K/uL (130-400); RED CELL DISTRIBUTION WIDTH CV 17.2 % (11.5-14.5); RED CELL DISTRIBUTION WIDTH SD 46.3 fL (36.4-46.3); WHITE BLOOD COUNT 9.25 K/uL (4.8-10.8)
[2018-01-27 17:37] LABS: CALCIUM 8.5 mg/dl (8.5-10.1); CREATININE 0.92 mg/dl (0.60-1.20); POTASSIUM 3.5 mmol/L (3.5-5.1)
--- NOTE | 2018-01-27 18:16 | DIAGNOSTIC IMAGING REPORT ---
TRANSVAG-FEMALE PELVIS HISTORY: 38 years-old Female heavy bleeding clots, previous fibroid and ectopic acute vaginal bleeding COMPARISON: Pelvic ultrasound 11/08/2016 TECHNIQUE: Multiple real-time sonographic images of the deep pelvic structures were obtained transabdominally and transvaginally assessing grayscale appearance, color and spectral flow FINDINGS: TRANSABDOMINAL: Anteflexed uterus measures 8.5 x 4.6 x 5.9 cm. Arterial inflow is noted within the right ovary. TRANSVAGINAL: Anteflexed uterus measures 9.1 x 4.8 x 4.8 cm. Heterogeneous area of the posterior fundal myometrium measures up to 3.0 cm suggesting possible intramural fibroid. Additionally, there is a 2.4 cm hypoechoic ovoid structure adjacent to uterine fundus suggesting a speculated subserosal fibroid. Endometrium measures 6 mm and appears homogeneous. Right ovary measures 2.9 x 1.9 x 2.5 cm and demonstrates arterial inflow and venous outflow. Hypoechoic structure exophytic from or adjacent to the right ovary measures 1.6 x 1.0 x 1.3 cm and demonstrates increased through transmission without internal vascularity documented. Left ovary measures 3.5 x 2.1 x 2.3 cm and demonstrates arterial inflow and venous outflow. Trace free pelvic fluid. IMPRESSION: 1. Intramural and pedunculated subserosal uterine leiomyomas as above. 2. No endometrial thickening. 3. 1.6 cm hypoechoic structure adjacent to the right ovary suggests exophytic follicle or para ovarian cyst. 4. No evidence of ovarian torsion. 5. Trace free pelvic fluid, likely physiologic. The above report was generated using voice recognition software. It may contain grammatical, syntax or spelling errors. Electronically signed by: Chaka Giron M.D. 01/27/2018 6:14 PM Dictated Date/Time: 01/27/2018 6:10 PM
[2018-01-27 18:31] VITALS: BP 112/62; PULSE 60; O2SAT 97
== END 2018-01-27 18:45 | disposition home or self-care (01) ==
LOC: C.EDB 16:20
DX: N93.9 Abnormal uterine and vaginal bleeding, unspecified (principal); R10.2 Pelvic and perineal pain; F17.200 Nicotine dependence, unspecified, uncomplicated; Z88.5 Allergy status to narcotic agent; Z91.030 Bee allergy status

== ENCOUNTER → 2018-04-12 | Outpatient (CLI) | payer OTHER ==
[~2018-04-12] MED LIST changes: +EPP3/2 IM; +IBUP-1428 PO; -PRED20TA PO; +VENTOLIN
--- NOTE | 2018-04-12 12:12 | DIAGNOSTIC IMAGING REPORT ---
R KNEE 1 OR 2 VIEWS ROUTINE HISTORY: 38 years-old Female M25.561 Bilateral knee [id number] acute bilateral knee pain COMPARISON: Right knee radiographs 02/16/2018 TECHNIQUE: 2 views of the right knee FINDINGS: There is no acute fracture, dislocation or significant degenerative changes. No large joint effusion or opaque foreign body. IMPRESSION: No acute fracture. The above report was generated using voice recognition software. It may contain grammatical, syntax or spelling errors. Electronically signed by: Chaka Giron M.D. 04/12/2018 12:11 PM Dictated Date/Time: 04/12/2018 12:10 PM
== END | disposition home or self-care (01) ==
LOC: C.RAD 11:42
PROVIDERS: ATTEND Neuromusculoskeletal Medicine & OMM
DX: M25.562 Pain in left knee (principal); M25.561 Pain in right knee